=== PATIENT | male | born 1980 | race Caucasian/White ===

== ENCOUNTER 2023-11-01 11:28 | Emergency (ER) | payer SELFPAY ==
[~2023-11-01] VITALS: Ht 172.7 cm; Wt 92.4 kg
[2023-11-01] MEDS: LIDOCAINE 1% MDV 20ML VIAL SC ONE (12:07)
[2023-11-01] MEDS: BOOSTRIX VACCINE (TETANUS/DIPHTH/ACEL. PERTUSSIS) 0.5ML SYR IM ONE (12:39)
[2023-11-01] MEDS ORDERED: AMOX875T2 PO (12:43)
[2023-11-01 12:52] VITALS: BP 126/82; TEMP 98.2; O2SAT 98
[2023-11-01] MEDS: BACITRACIN OINTMENT 30GM TUBE TOP ONE (12:56)
== END 2023-11-01 13:05 | disposition home or self-care (01) ==
LOC: M ED 11:28
DX: S61.012A Laceration without foreign body of left thumb without damage to nail, initial encounter (principal); Y92.9 Unspecified place or not applicable; Y93.9 Activity, unspecified; Y99.0 Civilian activity done for income or pay; Z79.2 Long term (current) use of antibiotics; Z23 Encounter for immunization

== ENCOUNTER 2023-11-09 07:08 | Emergency (ER) | payer OTHER, SELFPAY ==
[~2023-11-09] VITALS: Ht 172.7 cm; Wt 97.9 kg
[~2023-11-09 07:08] MED LIST: AMOX875T2 PO
[2023-11-09] MEDS ORDERED: AUGM500T34 PO (07:17)
[2023-11-09 10:17] VITALS: BP 141/80; TEMP 97.1; O2SAT 98
[2023-11-09] MEDS ORDERED: BACI500O8 TOP (10:48)
[2023-11-09] MEDS: NEOSPORIN OINT 0.9 GM PKT TOP ONE (10:53)
== END 2023-11-09 10:55 | disposition home or self-care (01) ==
LOC: M ED 07:08
DX: Z48.02 Encounter for removal of sutures (principal)

== ENCOUNTER 2023-11-12 06:29 | Emergency (ER) | payer OTHER ==
[~2023-11-12] VITALS: Ht 172.7 cm; Wt 90.4 kg
[~2023-11-12 06:29] MED LIST changes: +AUGM500T34 PO; +BACI500O8 TOP
[2023-11-12 07:08] VITALS: BP 131/84; TEMP 98.7; O2SAT 98
== END 2023-11-12 07:10 | disposition home or self-care (01) ==
LOC: M ED 06:29
DX: Z48.02 Encounter for removal of sutures (principal)

== ENCOUNTER 2025-01-06 09:11 | Emergency (ER) | payer OTHER ==
[~2025-01-06] VITALS: Ht 172.7 cm; Wt 90.9 kg
[2025-01-06] MEDS ORDERED: ISOVUE-370 76% 100 ML VIAL As Ordered ONE (10:04)
[2025-01-06 10:23] LABS: BASO # 0.1 10^3/uL (0.0-0.2); BASO % 0.5 % (0.0-1.0); EOS # 0.1 10^3/uL (0.0-0.5); EOS % 0.8 % (0.0-3.0); LYMPH # 1.0 10^3/uL (1.5-5.0); LYMPH % 8.3 % (24.0-44.0); MONO # 0.8 10^3/uL (0.0-0.8); MONO % 6.8 % (2.0-8.0); NEUTROPHILS # 9.8 10^3/uL (1.5-8.5); NEUTROPHILS % 83.0 % (36.0-66.0); PLATELET COUNT, AUTOMATED 309 10^3/uL (150-450)
[2025-01-06 10:35] LABS: INR 0.91
[2025-01-06] MEDS: MORPHINE 2 MG/ML 1 ML VIAL IV PRN (10:48)
[2025-01-06 10:49] LABS: CK-MB VALUE MASS 3.6 NG/ML (<3.6)
[2025-01-06 10:52] LABS: ALT/SGPT 43 U/L (7.0-40); AST/SGOT 24 U/L (<34); CALCIUM LEVEL 9.6 MG/DL (8.5-10.1); CARBON DIOXIDE LEVEL 28 MMOL/L (20-31); CHLORIDE LEVEL 106 MMOL/L (98-107); CPK CREATINE PHOSPHOKINASE 227 U/L (46-171); CREATININE FOR GFR 1.14 MG/DL (0.70-1.30); GLOMERULAR FILTRATION RATE 81.8 (>60); MB/CK RELATIVE INDEX 1.58 (< OR =4); POTASSIUM SERUM 5.2 MMOL/L (3.5-5.1); SODIUM LEVEL 142 MMOL/L (136-145)
[2025-01-06] MEDS ORDERED: ACET-897 PO (11:03)
[2025-01-06] MEDS ORDERED: HOME MED LIST COMPLETE! XX SCH (11:05)
[2025-01-06 11:11] LABS: APPEARANCE, URINE CLEAR (CLEAR); BACTERIA, URINE AUTO NEGATIVE (NEGATIVE); BILIRUBIN, URINE AUTO NEGATIVE (NEGATIVE); BLOOD, URINE BLOOD 1+ (NEGATIVE); GLUCOSE, URINE (UA) AUTO NEGATIVE (NEGATIVE); KETONE, URINE AUTO NEGATIVE (NEGATIVE); LEUKOCYTE ESTERASE, URINE AUTO NEGATIVE (NEGATIVE); MUCUS, URINE SMALL (NEGATIVE); NITRITE, URINE AUTO NEGATIVE (NEGATIVE); PROTEIN, URINE AUTO NEGATIVE (NEGATIVE); RBC, URINE AUTO 1 /HPF (0-3); SPECIFIC GRAVITY URINE AUTO 1.029 (1.002-1.035); SQUAMOUS EPITHELIAL CELL UR AU 0 /HPF (0-6); UROBILINOGEN, URINE AUTO 0.2 mg/dL (0.0-2.0); WBC, URINE AUTO 0 /HPF (0-3)
[2025-01-06] MEDS: KETOROLAC 30 MG/ML 1 ML VIAL IV ONE (11:25)
[2025-01-06 11:30] VITALS: BP 131/63; TEMP 98.5; O2SAT 98
[2025-01-06] MEDS ORDERED: KETO-204 PO (11:31)
== END 2025-01-06 11:51 | disposition home or self-care (01) ==
LOC: M ED 09:11
DX: S40.212A Abrasion of left shoulder, initial encounter (principal); S70.212A Abrasion, left hip, initial encounter; Y92.410 Unspecified street and highway as the place of occurrence of the external cause; Y93.9 Activity, unspecified; Y99.9 Unspecified external cause status; V28.09XA Other motorcycle driver injured in noncollision transport accident in nontraffic accident, initial encounter; M43.06 Spondylolysis, lumbar region; G93.89 Other specified disorders of brain; Z79.1 Long term (current) use of non-steroidal anti-inflammatories (NSAID); Z79.2 Long term (current) use of antibiotics
CPT/HCPCS: 70450; 71260; 72125; 72128; 72131; 73030; 73060; 73080; 73502; 74177; 80047; 80048; 80076; 81001; 82150; 82550; 82553; 83605; 83690; 84484; 85025; 85610; 85730; 86850; 86900; 86901; 93041; 94760; 96374; 96375; 99284; J1885; Q9967

== ENCOUNTER 2025-01-09 06:18 | Emergency (ER) | payer OTHER ==
[~2025-01-09] VITALS: Ht 172.7 cm; Wt 90.9 kg
[~2025-01-09 06:18] MED LIST changes: +ACET-897 PO; +KETO-204 PO
[2025-01-09 07:23] VITALS: BP 129/78; TEMP 98.1; O2SAT 94
== END 2025-01-09 07:27 | disposition home or self-care (01) ==
LOC: M ED 06:18
DX: M75.42 Impingement syndrome of left shoulder (principal); Z79.1 Long term (current) use of non-steroidal anti-inflammatories (NSAID); Z79.2 Long term (current) use of antibiotics